=== PATIENT | male | born 1990 | race Caucasian/White ===

== ENCOUNTER 2018-09-11 08:36 | Emergency (ER) | payer SELFPAY ==
[~2018-09-11] VITALS: Ht 167.6 cm; Wt 87.5 kg
[2018-09-11 08:39] VITALS: Ht 167.6 cm; Wt 87.5 kg
[2018-09-11 10:19] VITALS: BP 134/78
== END 2018-09-11 10:19 | disposition home or self-care (01) ==
LOC: ED 08:36
DX: S61.211A Laceration without foreign body of left index finger without damage to nail, initial encounter (principal); W26.0XXA Contact with knife, initial encounter; Y93.G1 Activity, food preparation and clean up; Y92.009 Unspecified place in unspecified non-institutional (private) residence as the place of occurrence of the external cause; Y99.8 Other external cause status
CPT/HCPCS: A4570